=== PATIENT | male | born 1950 | race Caucasian/White ===

== ENCOUNTER → 2019-10-01 07:28 | Outpatient (CLI) | payer MEDICARE, OTHER, SELFPAY ==
--- NOTE | 2019-10-01 | DI.ECHO.S_ITS ---
[facility] +---------+ : : [address] : [place] : : : : [id number] : : : : Phone: [phone]+ Echocardiogram Report + + :Name: PADMINI WARD Study Date: 10/01/2019 Height: 73 in : :[facility] Weight: 209 lb : : Gender: Male BSA: 2.2 m2 : :: 1950 Age: 68 yrs BP: 130/72 mmHg: :Reason For Study: Cardiomyopathy : :Ordering Physician: Yordan : :Rajwinder Clemons Performed By: Devorah Gama : :Referring: Dr. Santosh Sweet : + + Interpretation Summary The ejection fraction is estimated to be 55-60%. There is questionable hypokinesis of the basal inferior/inferolateral wall. The evaluation is limited due to suboptimal visualization. There are no other obvious focal wall motion abnormalities. The right ventricle grossly appears normal in size with probable normal systolic function. Pulmonary artery pressures cannot be estimated because of the lack of a measurable TR jet velocity but the IVC suggests a CVP of around 3 mmHg. There is mild mitral regurgitation. Both atria are normal size. No prior echo in our system for comparison. Procedure: A two-dimensional transthoracic echocardiogram with color flow and Doppler was performed. The study quality was technically adequate. There is no prior echocardiogram noted for this patient. The patient was in normal sinus rhythm during the exam. The patient had frequent PACs during the exam. Left Ventricle: The left ventricle is normal in size. There is normal left ventricular wall thickness. The ejection fraction is estimated to be 55-60%. There is questionable hypokinesis of the basal inferior/inferolateral wall. The evaluation is limited due to suboptimal visualization. There are no other obvious focal wall motion abnormalities. Diastolic parameters suggest probable normal left ventricular diastolic function and normal filling pressures. Right Ventricle: The right ventricle grossly appears normal in size with probable normal systolic function. Atria: The left atrial size is normal. Right atrial size is normal. There is no Doppler evidence for an interatrial shunt. Mitral Valve: The mitral valve is grossly normal. There is mild mitral regurgitation. Aortic Valve: The aortic valve opens well. No aortic regurgitation is present. Tricuspid Valve: The tricuspid valve is normal in structure and function. No tricuspid regurgitation. Pulmonary artery pressures cannot be estimated because of the lack of a measurable TR jet velocity but the IVC suggests a CVP of around 3 mmHg. Pulmonic Valve: The pulmonic valve is not well seen, but is grossly normal. There is mild pulmonic regurgitation. Great Vessels: The aortic root is normal size. The dimensions of the ascending aorta are normal. The aortic arch is normal in size. The IVC is of normal diameter and collapses greater than 50% with a sniff. This suggests a low right atrial pressure of 3 mm Hg. Pericardium/ Pleura There is no pericardial effusion. There is no pleural effusion. MMode/2D Measurements & Calculations LVIDd: 5.9 cm Ao root diam: 3.6 cm LVIDs: 4.8 cm Aortic Jxn: 2.9 cm FS: 19.4 % asc Aorta Diam: 3.5 cm EPSS: 0.74 cm Ao Arch Diam (Prox Trans): 3.0 cm IVSd: 1.1 cm LVPWd: 0.79 cm LV goldsmith. diameter/BSA (cm/m^2): 2.7 LV sys. diameter/BSA (cm/m^2): 2.2 LA dimension: 4.3 cm RA long axis: 5.0 cm LA A2 area: 20.6 cm2 RA area: 16.6 cm2 LA A4 area: 21.9 cm2 RA vol: 46.7 ml LA length (vol): 6.0 cm RA : 21.3 ml/m2 LA vol: 63.3 ml IVC diam: 1.5 cm LA vol index: 28.9 ml/m2 RVDd major: 5.6 cm RVD1 (basal): 3.6 cm LVAd ap4: 34.0 cm2 RVD2 (mid): 3.2 cm LVAs ap4: 21.0 cm2 LVLs ap4: 7.1 cm Doppler Measurements & Calculations Ao V2 max: 192.2 cm/sec MV E max will: 96.2 cm/sec Ao V2 mean: 125.2 cm/sec MV A max will: 92.6 cm/sec Ao max P.8 mmHg MV E/A: 1.0 Ao mean P.2 mmHg Med Peak E' Will: 6.8 cm/sec Ao V2 VTI: 43.0 cm E/E' med: 14.1 Lat Peak E' Will: 10.1 cm/sec E/E' lat: 9.5 E/e' average: 11.8 MV dec time: 0.23 sec MV P1/2t: 70.1 msec MR ERO: 0.09 cm2 TR max will: 186.9 cm/sec MV P1/2t max will: 95.5 cm/sec TR max P.0 mmHg MVA(P1/2t): 3.1 cm2 PA V2 max: 105.9 cm/sec PA V2 mean: 70.8 cm/sec PA mean P.3 mmHg PA Accel Time: 0.09 sec MR flow rate: 43.2 cm3/sec MR PISA radius: 0.42 cm Electronically signed by: Yordan Purdy M.D. on Reading Physician:10/03/2019 04:18 PM
== END ==
PROVIDERS: PCP Family Medicine; Visit Provider Hospitalist
DX: I34.0 Nonrheumatic mitral (valve) insufficiency (principal); I37.1 Nonrheumatic pulmonary valve insufficiency; I42.9 Cardiomyopathy, unspecified
CPT/HCPCS: 93306

== ENCOUNTER 2020-05-30 12:29 | Emergency (ER) | payer MEDICARE, OTHER, SELFPAY ==
[2020-05-30 12:41] VITALS: BP 157/77; PULSE 75; RESP 15; TEMP 36.3; O2SAT 100; BMI 26.6
[2020-05-30 13:53] LABS: Add Manual Diff / Slide Review NO; Basophils Absolute Auto 0 /uL (0-100); Basophils Percent Auto 0.5 % (0-2); Eosinophils Absolute Auto 100 /uL (0-450); Eosinophils Percent Auto 1.1 % (2-4); Hematocrit 38.2 % (41-53); Hemoglobin 13.2 g/dL (13.5-17.5); Lymphocytes Absolute Auto 800 /uL (1100-4500); Lymphocytes Percent Auto 14.8 % (25-40); Mean Corpuscular HGB Conc 34.7 % (30-36); Mean Corpuscular Volume 97.9 fL (80-100); Monocytes Absolute Auto 500 /uL (0-900); Neutrophils Absolute Auto 3900 /uL (1500-7000); Neutrophils Percent Auto 74.6 % (50-75); Platelet Count 199 X10^3/uL (150-400); Red Cell Distribution Width 12.7 % (11.6-14.8); White Blood Cell Count 5.2 X10^3/uL (4.5-11.0)
[2020-05-30 13:59] LABS: Prothrombin Time 11.4 SECONDS (10.1-12.7)
[2020-05-30 14:01] LABS: PTT Partial Thromboplastin Tim 31 SECONDS (26.4-36.2)
[2020-05-30 14:13] LABS: Alanine Aminotransferase 45 IU/L (<50); Albumin 4.7 g/dL (3.5-5.0); Albumin Globulin Ratio 1.6 (1.0-2.8); Alkaline Phosphatase 67 U/L (38-126); Aspartate Aminotransferase 48 IU/L (17-59); BUN Creatinine Ratio 20.7 (6-22); Bilirubin Total 0.7 mg/dL (0.2-1.3); Blood Urea Nitrogen 17 mg/dL (9-20); Calcium 9.9 mg/dL (8.4-10.2); Carbon Dioxide 26 mmol/L (22-32); Chloride 97 mmol/L (98-107); Estimated Glomerular Filt Rate > 60.0 mL/min (>60); Glucose 111 mg/dL (80-110); HEMOLYSIS < 15 (0-50); Potassium 5.1 mmol/L (3.4-5.1); Sodium 135 mmol/L (137-145); Total Protein 7.7 g/dL (6.3-8.2)
[2020-05-30 16:34] VITALS: BP 159/77; TEMP 36.4
--- NOTE | 2020-05-30 16:47 | ED_ITS ---
HPI - GI Bleed General Chief complaint: GI Bleed Stated complaint: BLOOD IN THE STOOL Time Seen by Provider: 05/30/20 16:43 Source: patient Mode of arrival: Ambulatory Limitations: no limitations History of Present Illness HPI Narrative: 69-year-old gentleman with a history of rheumatoid arthritis, chronic diarrhea after having his gallbladder removed and a history of both internal and external hemorrhoids who presents with bright red rectal bleeding starting 4 days ago. He notes that he had an episode Friday associated with a loose stool and similar episodes Friday with slight increased volume of stool and increased volume of bright red blood. He is having absolutely no pain, no fevers and otherwise feels well Related Data Previous Rx's Medication Instructions Recorded gemfibrozil 600 mg PO DAILY #30 tab 05/30/20 hydrocortisone [Proctosol HC] 1 applictn IN BID-QID PRN #30 gram 05/30/20 Allergies Allergy/AdvReac Type Severity Reaction Status Date / Time codeine Allergy Verified 05/30/20 12:41 Review of Systems Review of Systems Narrative: Pertinent positive and negative findings as per HPI Remainder of review of systems is otherwise unremarkable for Constitutional: Fevers, chills, weakness ENT: No sore throat, neck pain, ear pain CV: Chest pain, palpitations, dyspnea on exertion Respiratory: Cough, wheeze, dyspnea GI: Nausea, vomiting, : Dysuria, hematuria, flank pain MS: Muscle weakness, numbness, joint swelling or warmth Patient History Medical History Bleeding internal hemorrhoids (Inactive) Chronic diarrhea (Acute) Social History Smoking Status: Unknown if ever smoked Smoking Status: Unknown if ever smoked alcohol intake frequency: 3 or more drinks per day Alcohol type: beer Substance Use Type: does not use Exam Narrative Exam Narrative: General: Alert appropriate in no acute distress Respiratory: Able to speak in full sentences, no obvious respiratory distress Cardiac: Regular rate and rhythm no murmurs Abdomen: Soft nontender nondistended Rectal: Multiple small external hemorrhoidal tags without bleeding. Moderate sized internal hemorrhoid at approximately 5:00. position with blood associated. Non thrombosed nontender Skin: No obvious rashes, warm and dry Neurologic: Grossly intact no obvious asymmetries or abnormalities Psych, appropriate insight and affect, cooperative Initial Vital Signs Initial Vital Signs: Vital Signs Temperature 97.3 F L 05/30/20 12:41 Pulse Rate 75 05/30/20 12:41 Respiratory Rate 15 05/30/20 12:41 Blood Pressure 157/77 H 05/30/20 12:41 Pulse Oximetry 100 05/30/20 12:41 Course Orders Ordered: ED Orders 05/30/20 12:45 EKG-12 Lead Stat 05/30/20 13:45 Complete Blood Count AUTO DIFF Stat Comprehensive Metabolic Panel Stat Partial Thromboplastin Time Stat Prothrombin Time INR Stat Vital Signs Vital signs: Vital Signs - 8 hr 05/30/20 12:41 05/30/20 16:34 Temperature 97.3 F L 97.6 F Pulse Rate 75 Respiratory Rate 15 Blood Pressure 157/77 H 159/77 H Pulse Oximetry 100 MDM - GI Bleed Medical Records Attestation: I reviewed the patient's medical records. Lab Data Attestation: I reviewed the patient's lab results. Result diagrams: 05/30/20 13:45 05/30/20 13:45 Labs: Lab Results 05/30/20 05/30/20 05/30/20 Range/Units 13:45 13:45 13:45 WBC 5.2 (4.5-11.0) X10^3/uL RBC 3.90 L (4.5-5.9) X10^6/uL Hgb 13.2 L (13.5-17.5) g/dL Hct 38.2 L (41-53) % MCV 97.9 (80-100) fL MCH 34.0 (26-34) PG MCHC 34.7 (30-36) % RDW 12.7 (11.6-14.8) % Plt Count 199 (150-400) X10^3/uL Neut % (Auto) 74.6 (50-75) % Lymph % (Auto) 14.8 L (25-40) % [place] % (Auto) 9.0 (3-14) % Eos % (Auto) 1.1 L (2-4) % Baso % (Auto) 0.5 (0-2) % Neut # (Auto) 3900 (3414-2322) /uL Lymph # (Auto) 800 L (5529-9010) /uL [place] # (Auto) 500 (0-900) /uL Eos # (Auto) 100 (0-450) /uL Baso # (Auto) 0 (0-100) /uL PT 11.4 (10.1-12.7) SECONDS INR 1.0 (0.9-1.3) APTT 31 (26.4-36.2) SECONDS Sodium 135 L (137-145) mmol/L Potassium 5.1 (3.4-5.1) mmol/L Chloride 97 L (98-107) mmol/L Carbon Dioxide 26 (22-32) mmol/L BUN 17 (9-20) mg/dL Creatinine 0.82 (0.66-1.25) mg/dL Estimated GFR > 60.0 (>60) mL/min BUN/Creatinine Ratio 20.7 (6-22) Glucose 111 H (80-110) mg/dL Calcium 9.9 (8.4-10.2) mg/dL Total Bilirubin 0.7 (0.2-1.3) mg/dL AST 48 (17-59) IU/L ALT 45 (<50) IU/L Alkaline Phosphatase 67 (38-126) U/L Total Protein 7.7 (6.3-8.2) g/dL Albumin 4.7 (3.5-5.0) g/dL Globulin 3.0 (1.7-4.1) g/dL Albumin/Globulin Ratio 1.6 (1.0-2.8) Discharge Plan Departure Patient Disposition: Home Clinical Impression: Bleeding internal hemorrhoids, Chronic diarrhea Instructions: DI for Hemorrhoids Activity Restrictions/Additional Instructions: Thank you for coming in today On your exam, it does look like you have an internal hemorrhoid that is causing her bleeding. I suspect that your chronic diarrhea is irritating the internal h emorrhoids. Your lab work is very reassuring, there are no signs of anemia. White blood cell count is 5.2 and there are no signs of infection I am going to suggest that you use gemfibrozil, a cholesterol-lowering medications that binds to bile. It can be helpful in reducing diarrhea secondary to chronic bile production after you have had your gallbladder removed. For the hemorrhoid I have given you a prescription for Proctosol HC. Use the applicator to apply the cream into your rectum at least 2 times a day until the bleeding has slowed and stopped for a number of days. Please do keep your appointment with your primary care provider next week. If you are still having significant rectal bleeding at that point you likely will need to have some type of endoscopy to further evaluate. I hope you feel better. Thank you so much for waiting today Prescriptions: New hydrocortisone [Proctosol HC] 2.5 % cream with perineal applicator 1 applictn IN BID-QID PRN (Reason: hemorrhoids) Qty: 30 RF: 1 gemfibrozil 600 mg tablet 600 mg PO DAILY Qty: 30 RF: 0 Referrals: Santosh Sweet MD [Primary Care Provider] -
== END 2020-05-30 17:26 | disposition home or self-care (01) ==
PROVIDERS: Emergency Provider Emergency Medicine; PCP Family Medicine
DX: K64.8 Other hemorrhoids (principal); K52.9 Noninfective gastroenteritis and colitis, unspecified
CPT/HCPCS: 36415; 80053; 85025; 85610; 85730; 99283

== ENCOUNTER 2022-09-05 11:29 | Emergency (ER) | payer MEDICARE, OTHER, SELFPAY ==
[2022-09-05 11:40] VITALS: BP 147/70; PULSE 78; RESP 15; TEMP 36.5; O2SAT 99; BMI 27.7
--- NOTE | 2022-09-05 11:47 | DI.RAD.S_ITS ---
PROCEDURE: XR CHEST 1V INDICATIONS: Shortness of breath TECHNIQUE: One view of the chest was acquired. COMPARISON: None. FINDINGS: Surgical changes and devices: None. Lungs and pleura: Lungs are clear. No pleural effusions or pneumothorax. Mediastinum: Mediastinal contours appear normal. Heart size is normal. Bones and chest wall: No suspicious bony lesions. Overlying soft tissues appear unremarkable. IMPRESSION: No acute finding. Dictated by: Vincent Garcia M.D. on 09/05/2022 at 12:33 Approved by: Vincent Garcia M.D. on 09/05/2022 at 12:34
[2022-09-05 12:10] LABS: Add Manual Diff / Slide Review NO; Basophils Absolute Auto 0 /uL (0-100); Basophils Percent Auto 0.4 % (0-2); Eosinophils Absolute Auto 0 /uL (0-450); Hematocrit 38.4 % (41-53); Hemoglobin 13.2 g/dL (13.5-17.5); Lymphocytes Absolute Auto 500 /uL (1100-4500); Lymphocytes Percent Auto 13.6 % (25-40); Mean Corpuscular HGB Conc 34.3 % (30-36); Mean Corpuscular Volume 96.1 fL (80-100); Monocytes Absolute Auto 600 /uL (0-900); Monocytes Percent Auto 15.9 % (3-14); Neutrophils Absolute Auto 2600 /uL (1500-7000); Neutrophils Percent Auto 69.1 % (50-75); Platelet Count 168 X10^3/uL (150-400); Red Blood Cell Count 3.99 X10^6/uL (4.5-5.9); Red Cell Distribution Width 13.7 % (11.6-14.8); White Blood Cell Count 3.7 X10^3/uL (4.5-11.0)
[2022-09-05 12:14] LABS: INR 1.1 (0.9-1.3); Prothrombin Time 12.1 SECONDS (10.1-12.7)
[2022-09-05 12:19] LABS: Alanine Aminotransferase 31 IU/L (<50); Albumin Globulin Ratio 1.4 (1.0-2.8); Alkaline Phosphatase 65 U/L (38-126); Aspartate Aminotransferase 45 IU/L (17-59); BUN Creatinine Ratio 9.2 (6-22); Bilirubin Total 0.6 mg/dL (0.2-1.3); Blood Urea Nitrogen 7 mg/dL (9-20); Calcium 8.7 mg/dL (8.4-10.2); Carbon Dioxide 28 mmol/L (22-32); Chloride 95 mmol/L (98-107); Estimated Glomerular Filt Rate > 60 mL/min (>60); Globulin 2.9 g/dL (1.7-4.1); Glucose 131 mg/dL (80-110); HEMOLYSIS < 15 (0-50); Potassium 4.3 mmol/L (3.4-5.1); Sodium 132 mmol/L (137-145); Total Protein 6.9 g/dL (6.3-8.2)
[2022-09-05 12:20] LABS: Lactate (Lactic Acid) 0.9 mmol/L (0.7-2.1)
[2022-09-05 12:31] LABS: NT-proBNP (BNP-Adult 18+) 119 pg/mL (<125); Troponin I < 0.012 ng/mL (0.01-0.034)
[2022-09-05 12:42] LABS: Influenza A - CEPHEID Flu A POSITIVE (NEGATIVE); Influenza B - CEPHEID Flu B NEGATIVE (NEGATIVE); Respiratory Syncytial Virus Negative (Negative)
[2022-09-05 13:01] LABS: COVID-19 CEPHEID 4-PLEX PCR Negative (Negative)
--- NOTE | 2022-09-05 14:17 | ED_ITS ---
HPI - SOB/Dyspnea <JOSSIE Thorpe - Last Filed: 09/05/22 14:23> General Chief Complaint: Shortness of Breath/Dyspnea Stated Complaint: difficulty breathing,stabbing back & stomach pain Time Seen by Provider: 09/05/22 12:49 Source: patient Mode of arrival: Ambulatory Limitations: no limitations History of Present Illness HPI Narrative: This is a 71-year-old gentleman presents to the emergency department with 67 days of intermittent shortness of breath or shortness of breath with exertion, stomach pain and worsening low back pain. He has a history of rheumatoid arthritis and received his infusion yesterday, states that he also has a history of type 2 diabetes and has had all of his COVID vaccinations. He states that 2 nights ago he had more than a normal amount of phlegm and was coughing up phlegm most of the night, he denies recent fever or chills, denies any significant shortness of breath. Denies any wheezing or history of smoking. Denies history of pneumonia, states that his congestion and pleurisy started on the right and has progressed and started to improve. He states that he had mild swelling to his bilateral lower extremities this morning as the 1st day of this and it improved by the time he arrived here. He denies history of heart failure, is not anticoagulated, he has seen Dr. Espinoza while for Cardiology and takes antihypertensives. Denies any history of blood clots or CVA, endorses using chewing tobacco. Four days ago he had a right toenail procedure by Dr. Lang and has had improvement of this over the last 4 days without worsening swelling, discharge, tenderness or concern for infection. He states that it has improved every single day and is healing as he would expect. Related Data Previous Rx's Medication Instructions Recorded gemfibrozil 600 mg tablet 600 mg PO DAILY #30 tabs 05/30/20 hydrocortisone 2.5 % topical cream 1 applictn MN BID-QID PRN 05/30/20 with perineal applicator hemorrhoids #30 grams (Proctosol HC) Allergies Allergy/AdvReac Type Severity Reaction Status Date / Time codeine Allergy Verified 09/05/22 11:43 Review of Systems <JOSSIE Thorpe - Last Filed: 09/05/22 14:23> Review of Systems Narrative: Review of systems is negative for acute abnormalities unless otherwise noted in HPI Patient History <JOSSIE Thorpe - Last Filed: 09/05/22 14:23> Medical History Bleeding internal hemorrhoids Chronic diarrhea Social History Smoking Status: Unknown if ever smoked Smoking Status: Unknown if ever smoked alcohol intake frequency: 3 or more drinks per day Alcohol type: beer Substance Use Type: does not use Exam <JOSSIE Thorpe - Last Filed: 09/05/22 14:23> Narrative Exam Narrative: Reviewed vitals signs and nursing notes. General: cooperative, comfortable, in no acute distress, well groomed HEENT: symmetrical facial expressions, moist mucous membranes Cardiovascular: regular rate and rhythm, no peripheral edema, warm extremities Respiratory: Mildly tachypneic with shallow respirations, clear breath sounds throughout without rhonchi, wheezing, able to speak in complete sentences, without stridor or increased work of breathing. RT eval without abnormal breath sounds, wheezing, and does not recommend nebulizer. GI: abdomen soft, nontender to palpation, nondistended, without masses, rebound tenderness or exquisite tenderness with exam. No CVA tenderness bilaterally MSK: moves all extremities, neurovascularly intact, no weakness, normal tone complains of Skin: brisk capillary refill, without pallor or erythema Neuro: normal speech and cognition, A&O x3, ambulatory, clear speech Psych: mental status is grossly normal, congruent mood, normal affect, pleasant and cooperative Initial Vital Signs Initial Vital Signs: Vital Signs Temperature 97.7 F 09/05/22 11:40 Pulse Rate 78 09/05/22 11:40 Respiratory Rate 15 09/05/22 11:40 Blood Pressure 147/70 H 09/05/22 11:40 Pulse Oximetry 99 09/05/22 11:40 Oxygen Delivery Method 09/05/22 11:40 <Jing Carrion DO - Last Filed: 09/06/22 11:55> Initial Vital Signs Initial Vital Signs: Vital Signs Temperature 97.7 F 09/05/22 11:40 Pulse Rate 78 09/05/22 11:40 Respiratory Rate 15 09/05/22 11:40 Blood Pressure 147/70 H 09/05/22 11:40 Pulse Oximetry 99 09/05/22 11:40 Oxygen Delivery Method 09/05/22 11:40 Course <JOSSIE Thorpe - Last Filed: 09/05/22 14:23> Orders Ordered: Discontinued Medications Guaifenesin (Guaifenesin Er 600 Mg Tab) 600 mg PO NOW ONE Stop: 09/05/22 14:05 Last Admin: 09/05/22 14:29 Dose: 600 mg Documented By: ROSALEE Ibuprofen (Ibuprofen 400 Mg Tablet) 600 mg PO NOW ONE Stop: 09/05/22 14:13 Last Admin: 09/05/22 14:29 Dose: 600 mg Documented By: ROSALEE Prednisone (Prednisone 20 Mg Tablet) 40 mg PO NOW ONE Stop: 09/05/22 14:05 Last Admin: 09/05/22 14:23 Dose: Not Given Documented By: ROSALEE Vital Signs Vital signs: Vital Signs - 8 hr 09/05/22 11:40 Temperature 97.7 F Pulse Rate 78 Respiratory Rate 15 Blood Pressure 147/70 H Pulse Oximetry 99 Oxygen Delivery Method Room Air <Jing Carrion DO - Last Filed: 09/06/22 11:55> Orders Ordered: Discontinued Medications Guaifenesin (Guaifenesin Er 600 Mg Tab) 600 mg PO NOW ONE Stop: 09/05/22 14:05 Last Admin: 09/05/22 14:29 Dose: 600 mg Documented By: ROSALEE Ibuprofen (Ibuprofen 400 Mg Tablet) 600 mg PO NOW ONE Stop: 09/05/22 14:13 Last Admin: 09/05/22 14:29 Dose: 600 mg Documented By: ROSALEE Prednisone (Prednisone 20 Mg Tablet) 40 mg PO NOW ONE Stop: 09/05/22 14:05 Last Admin: 09/05/22 14:23 Dose: Not Given Documented By: ROSALEE Vital Signs Vital signs: Vital Signs - 8 hr 09/05/22 11:40 Temperature 97.7 F Pulse Rate 78 Respiratory Rate 15 Blood Pressure 147/70 H Pulse Oximetry 99 Oxygen Delivery Method Room Air MDM - SOB/Dyspnea <JOSSIE Thorpe - Last Filed: 09/05/22 14:23> Lab Data Result diagrams: 09/05/22 11:55 09/05/22 11:55 Labs: Lab Results 09/05/22 09/05/22 09/05/22 Range/Units 11:48 11:55 11:55 WBC 3.7 L (4.5-11.0) X10^3/uL RBC 3.99 L (4.5-5.9) X10^6/uL Hgb 13.2 L (13.5-17.5) g/dL Hct 38.4 L (41-53) % MCV 96.1 (80-100) fL MCH 33.0 (26-34) PG MCHC 34.3 (30-36) % RDW 13.7 (11.6-14.8) % Plt Count 168 (150-400) X10^3/uL Neut % (Auto) 69.1 (50-75) % Lymph % (Auto) 13.6 L (25-40) % [place] % (Auto) 15.9 H (3-14) % Eos % (Auto) 1.0 L (2-4) % Baso % (Auto) 0.4 (0-2) % Neut # (Auto) 2600 (7993-7562) /uL Lymph # (Auto) 500 L (0145-2617) /uL [place] # (Auto) 600 (0-900) /uL Eos # (Auto) 0 (0-450) /uL Baso # (Auto) 0 (0-100) /uL PT 12.1 (10.1-12.7) SECONDS INR 1.1 (0.9-1.3) Sodium (137-145) mmol/L Potassium (3.4-5.1) mmol/L Chloride (98-107) mmol/L Carbon Dioxide (22-32) mmol/L BUN (9-20) mg/dL Creatinine (0.66-1.25) mg/dL Estimated GFR (>60) mL/min BUN/Creatinine Ratio (6-22) Glucose (80-110) mg/dL Lactate (0.7-2.1) mmol/L Calcium (8.4-10.2) mg/dL Total Bilirubin (0.2-1.3) mg/dL AST (17-59) IU/L ALT (<50) IU/L Alkaline Phosphatase (38-126) U/L Troponin I (0.01-0.034) ng/mL NT-Pro-B Natriuret Pep (<125) pg/mL Total Protein (6.3-8.2) g/dL Albumin (3.5-5.0) g/dL Globulin (1.7-4.1) g/dL Albumin/Globulin Ratio (1.0-2.8) SARS-CoV-2 (PCR) Negative (Negative) Influenza A (RT-PCR) Flu a positive H (NEGATIVE) Influenza B (RT-PCR) Flu b negative (NEGATIVE) RSV (PCR) Negative (Negative) 09/05/22 09/05/22 Range/Units 11:55 11:55 WBC (4.5-11.0) X10^3/uL RBC (4.5-5.9) X10^6/uL Hgb (13.5-17.5) g/dL Hct (41-53) % MCV (80-100) fL MCH (26-34) PG MCHC (30-36) % RDW (11.6-14.8) % Plt Count (150-400) X10^3/uL Neut % (Auto) (50-75) % Lymph % (Auto) (25-40) % [place] % (Auto) (3-14) % Eos % (Auto) (2-4) % Baso % (Auto) (0-2) % Neut # (Auto) (8530-9057) /uL Lymph # (Auto) (7848-8691) /uL [place] # (Auto) (0-900) /uL Eos # (Auto) (0-450) /uL Baso # (Auto) (0-100) /uL PT (10.1-12.7) SECONDS INR (0.9-1.3) Sodium 132 L (137-145) mmol/L Potassium 4.3 (3.4-5.1) mmol/L Chloride 95 L (98-107) mmol/L Carbon Dioxide 28 (22-32) mmol/L BUN 7 L (9-20) mg/dL Creatinine 0.76 (0.66-1.25) mg/dL Estimated GFR > 60 (>60) mL/min BUN/Creatinine Ratio 9.2 (6-22) Glucose 131 H (80-110) mg/dL Lactate 0.9 (0.7-2.1) mmol/L Calcium 8.7 (8.4-10.2) mg/dL Total Bilirubin 0.6 (0.2-1.3) mg/dL AST 45 (17-59) IU/L ALT 31 (<50) IU/L Alkaline Phosphatase 65 (38-126) U/L Troponin I < 0.012 (0.01-0.034) ng/mL NT-Pro-B Natriuret Pep 119 (<125) pg/mL Total Protein 6.9 (6.3-8.2) g/dL Albumin 4.0 (3.5-5.0) g/dL Globulin 2.9 (1.7-4.1) g/dL Albumin/Globulin Ratio 1.4 (1.0-2.8) SARS-CoV-2 (PCR) (Negative) Influenza A (RT-PCR) (NEGATIVE) Influenza B (RT-PCR) (NEGATIVE) RSV (PCR) (Negative) Imaging Data Chest x-ray: Radiologist's Impression: PROCEDURE:? XR CHEST 1V ? INDICATIONS:? Shortness of breath ? TECHNIQUE:? One view of the chest was acquired.? ? COMPARISON:? None. ? FINDINGS:? ? Surgical changes and devices:? None.? ? Lungs and pleura:? Lungs are clear.? No pleural effusions or pneumothorax.? ? Mediastinum:? Mediastinal contours appear normal.? Heart size is normal.? ? Bones and chest wall:? No suspicious bony lesions.? Overlying soft tissues appear unremarkable.? ? IMPRESSION:? No acute finding. ? ? Dictated by: Vincent Garcia M.D. on 09/05/2022 at 12:33 ? ? Approved by: Vincent Garcia M.D. on 09/05/2022 at 12:34 ? [facility] Narrative Medical decision making narrative: This is a 71-year-old gentleman who presents the emergency department with upper respiratory congestion, nausea and vomiting a few days ago, 6 days of muscle aches, shortness of breath with exertion and he tested positive for influenza a today. He is nontoxic appearing, without increased work of breathing, hypoxia, tachypnea, or abnormal breath sounds. Chest x-ray does not show any acute cardiopulmonary abnormality. He has a history of rheumatoid arthritis, diabetes, recent toenail procedure with Dr. Lang without any signs of bacterial infection. Other possible diagnosis' considered include; viral URI, influenza, pneumonia, pharyngitis, acute bronchitis, allergic rhinitis, pertussis, sinusitis, appendicitis, dehydration. Rest, drink plenty of fluids, NSAIDS for muscle aches and pains. Return to ED for worsening symptoms such as SOB, chest pain, inability to take adequate oral fluids, fever, or productive cough. Recommend follow-up with PCP and other providers as needed. <Jing Carrion, DO - Last Filed: 09/06/22 11:55> Lab Data Labs: Lab Results 09/05/22 09/05/22 09/05/22 Range/Units 11:48 11:55 11:55 WBC 3.7 L (4.5-11.0) X10^3/uL RBC 3.99 L (4.5-5.9) X10^6/uL Hgb 13.2 L (13.5-17.5) g/dL Hct 38.4 L (41-53) % MCV 96.1 (80-100) fL MCH 33.0 (26-34) PG MCHC 34.3 (30-36) % RDW 13.7 (11.6-14.8) % Plt Count 168 (150-400) X10^3/uL Neut % (Auto) 69.1 (50-75) % Lymph % (Auto) 13.6 L (25-40) % [place] % (Auto) 15.9 H (3-14) % Eos % (Auto) 1.0 L (2-4) % Baso % (Auto) 0.4 (0-2) % Neut # (Auto) 2600 (9211-2052) /uL Lymph # (Auto) 500 L (5760-8895) /uL [place] # (Auto) 600 (0-900) /uL Eos # (Auto) 0 (0-450) /uL Baso # (Auto) 0 (0-100) /uL PT 12.1 (10.1-12.7) SECONDS INR 1.1 (0.9-1.3) Sodium (137-145) mmol/L Potassium (3.4-5.1) mmol/L Chloride (98-107) mmol/L Carbon Dioxide (22-32) mmol/L BUN (9-20) mg/dL Creatinine (0.66-1.25) mg/dL Estimated GFR (>60) mL/min BUN/Creatinine Ratio (6-22) Glucose (80-110) mg/dL Lactate (0.7-2.1) mmol/L Calcium (8.4-10.2) mg/dL Total Bilirubin (0.2-1.3) mg/dL AST (17-59) IU/L ALT (<50) IU/L Alkaline Phosphatase (38-126) U/L Troponin I (0.01-0.034) ng/mL NT-Pro-B Natriuret Pep (<125) pg/mL Total Protein (6.3-8.2) g/dL Albumin (3.5-5.0) g/dL Globulin (1.7-4.1) g/dL Albumin/Globulin Ratio (1.0-2.8) SARS-CoV-2 (PCR) Negative (Negative) Influenza A (RT-PCR) Flu a positive H (NEGATIVE) Influenza B (RT-PCR) Flu b negative (NEGATIVE) RSV (PCR) Negative (Negative) 09/05/22 09/05/22 Range/Units 11:55 11:55 WBC (4.5-11.0) X10^3/uL RBC (4.5-5.9) X10^6/uL Hgb (13.5-17.5) g/dL Hct (41-53) % MCV (80-100) fL MCH (26-34) PG MCHC (30-36) % RDW (11.6-14.8) % Plt Count (150-400) X10^3/uL Neut % (Auto) (50-75) % Lymph % (Auto) (25-40) % [place] % (Auto) (3-14) % Eos % (Auto) (2-4) % Baso % (Auto) (0-2) % Neut # (Auto) (7074-7619) /uL Lymph # (Auto) (0942-1999) /uL [place] # (Auto) (0-900) /uL Eos # (Auto) (0-450) /uL Baso # (Auto) (0-100) /uL PT (10.1-12.7) SECONDS INR (0.9-1.3) Sodium 132 L (137-145) mmol/L Potassium 4.3 (3.4-5.1) mmol/L Chloride 95 L (98-107) mmol/L Carbon Dioxide 28 (22-32) mmol/L BUN 7 L (9-20) mg/dL Creatinine 0.76 (0.66-1.25) mg/dL Estimated GFR > 60 (>60) mL/min BUN/Creatinine Ratio 9.2 (6-22) Glucose 131 H (80-110) mg/dL Lactate 0.9 (0.7-2.1) mmol/L Calcium 8.7 (8.4-10.2) mg/dL Total Bilirubin 0.6 (0.2-1.3) mg/dL AST 45 (17-59) IU/L ALT 31 (<50) IU/L Alkaline Phosphatase 65 (38-126) U/L Troponin I < 0.012 (0.01-0.034) ng/mL NT-Pro-B Natriuret Pep 119 (<125) pg/mL Total Protein 6.9 (6.3-8.2) g/dL Albumin 4.0 (3.5-5.0) g/dL Globulin 2.9 (1.7-4.1) g/dL Albumin/Globulin Ratio 1.4 (1.0-2.8) SARS-CoV-2 (PCR) (Negative) Influenza A (RT-PCR) (NEGATIVE) Influenza B (RT-PCR) (NEGATIVE) RSV (PCR) (Negative) ECG Data Attestation: I personally reviewed and interpreted this ECG as follows: Prior ECG tracings: not available for review Interpretation: Sinus rhythm rate of 78 MN 176 QRS 90 QTC of 440. No acute ST elevation or depression noted. No priors for comparison. Discharge Plan Departure Patient Disposition: Home Clinical Impression: Influenza A Instructions: Influenza Activity Restrictions/Additional Instructions: *You have been diagnosed with influenza A. Typically symptoms last 4-6 days, you may have ongoing cough and congestion. Please start taking Zyrtec 10-20 mg at night to help decrease the congestion, you can use Mucinex for productive cough if it is thick. Please use Tylenol and ibuprofen every 6-8 hours as needed for pain and fever. I hope you feel better soon, chest x-ray does not show pneumonia, pleural effusions, and your lab work does not show any sign of heart strain or fluid overload. You should start getting better soon and if not, please come back if you have worsening symptoms. Flonase nasal spray morning and night can help decrease some of the sinus congestion as well. *What to do: *Please continue to take your regular medications as directed. [ ] New medication prescriptions sent to your pharmacy: [ ] [ ] New medication written as a paper prescription [ x] No new medications given *Please follow up with your primary care provider in 2-3 days, call for an ap pointment. Let them know you were seen in the Emergency Department and that we asked that you be seen for follow-up. We will electronically transmit a record of today's note if your PCP is in our system *If you do not have a primary care provider please contact [phone] to establish care with one of the [facility] primary care providers. *Return to Emergency Department if you should have any new, worsening, or concerning symptoms, such as [fever greater than 101F, chills, worsening pain, persistent vomiting or other bothersome symptoms]. Prescriptions: No Action hydrocortisone [Proctosol HC] 2.5 % cream with perineal applicator 1 applictn MN BID-QID PRN (Reason: hemorrhoids) Qty: 30 1RF gemfibrozil 600 mg tablet 600 mg PO DAILY Qty: 30 0RF Referrals: Santosh Sweet MD [Primary Care Provider] - Visit Report Forms: Patient Portal/API <Jing Carrion DO - Last Filed: 09/06/22 11:55> Cosign ED Attending Arsenature Attestation: I was immediately available in the department for consultation. Documentation has been reviewed.
[2022-09-05] MEDS: guaiFENesin ER 600 MG TAB PO (14:29)
[2022-09-05] MEDS: IBUPROFEN 400 MG TABLET 600 MG PO (14:29)
== END 2022-09-05 14:34 | disposition home or self-care (01) ==
PROVIDERS: Emergency Medicine; Emergency Provider Nurse Practitioner Critical Care Medicine; PCP Family Medicine
DX: J10.1 Influenza due to other identified influenza virus with other respiratory manifestations (principal); Z20.822 Contact with and (suspected) exposure to COVID-19
CPT/HCPCS: 0241U; 36415; 71045; 80053; 83605; 83880; 84484; 85025; 85610; 93005; 99284

== ENCOUNTER → 2022-12-02 12:10 | Outpatient (CLI) | payer MEDICARE, OTHER, SELFPAY ==
--- NOTE | 2022-12-02 | DI.ECHO.S_ITS ---
[place]---------+ [facility] +---------+ : : [address] [place] : : : : [id number] : : : : Phone: [phone]+ Echocardiogram Report + + :Name: PADMINI WARD Study Date: 12/02/2022 Height: 73 in : :[facility] ReadingLocation: Weight: 208 lb : : Gender: Male BSA: 2.2 m2 : :: 1950 Age: 72 yrs BP: 133/68 mmHg: :Reason For Study: Cardiomyopathy : :Ordering Physician: FRANCES, : :LIZ Performed By: Treasure Levine : :Referring: LIZ DANIELS : + + Interpretation Summary The left ventricle is normal in size and wall thickness.Left ventricular systolic function is normal. The ejection fraction is estimated to be 65-70%. Previous LVEF 55 to 60%.Basal inferior and basal posterior lateral wall hypokinesis. Unchanged from the previous study. The right ventricle is normal in size and function. No significant valvular pathology seen. The IVC is of normal diameter and collapses greater than 50% with a sniff. This suggests a low right atrial pressure of 3 mm Hg. There is a trivial pericardial effusion noted. Appears to be new along with anterior fat pad. There are no echocardiographic indications of cardiac tamponade. Procedure: A two-dimensional transthoracic echocardiogram with color flow and Doppler was performed. The study quality was technically good. There has been no significant change since the previous study. The patient was in sinus rhythm with heart rates between 68-75 bpm during the exam. Left Ventricle: The left ventricle is normal in size and wall thickness. There is no thrombus. The ejection fraction is estimated to be 65-70%. Left ventricular systolic function is normal. Basal inferior and basal posterior lateral wall hypokinesis. Unchanged from the previous study. Diastolic parameters suggest a relaxation abnormality of the left ventricle, consistent with probable normal filling pressures. Right Ventricle: The right ventricle is normal in size and function. Atria: The left atrial size is normal. There has been no significant change since the previous study. Right atrial size is normal. There is no Doppler evidence for an interatrial shunt. Mitral Valve: The mitral valve is normal in structure and function. There is trace mitral regurgitation. Aortic Valve: The aortic valve is normal in structure and function. The aortic valve is trileaflet. There is no aortic valve stenosis. No aortic regurgitation is present. Tricuspid Valve: The tricuspid valve is normal in structure and function. Pulmonary artery pressures cannot be estimated because of the lack of a measurable TR jet velocity. There is trace tricuspid regurgitation. Pulmonic Valve: The pulmonic valve is not well seen, but is grossly normal. There is mild pulmonic regurgitation. Great Vessels: The aortic root is normal size. The ascending aorta is at the upper limits of normal in size. The IVC is of normal diameter and collapses greater than 50% with a sniff. This suggests a low right atrial pressure of 3 mm Hg. Pericardium/ Pleura There is a trivial pericardial effusion noted. There is an anterior echo-free space consistent with a fat pad. There are no echocardiographic indications of cardiac tamponade. There is no pleural effusion. MMode/2D Measurements & Calculations LVIDd: 5.1 cm LVOT diam: 2.0 cm LVIDs: 3.6 cm Ao root diam: 3.6 cm FS: 29.4 % asc Aorta Diam: 3.5 cm EPSS: 0.60 cm IVSd: 1.0 cm LVPWd: 1.1 cm LV goldsmith. diameter/BSA (cm/m^2): 2.3 LV sys. diameter/BSA (cm/m^2): 1.6 LA dimension: 3.4 cm RA long axis: 3.6 cm LA A2 area: 21.0 cm2 RA area: 10.2 cm2 LA A4 area: 15.3 cm2 RA vol: 24.7 ml LA length (vol): 5.7 cm RA : 11.3 ml/m2 LA vol: 48.1 ml IVC diam: 1.9 cm LA vol index: 22.0 ml/m2 RVD1 (basal): 3.4 cm LVLs ap4: 5.9 cm LVLd ap2: 8.0 cm TAPSE_phl: 2.8 cm LVLs ap2: 5.8 cm Doppler Measurements & Calculations Ao V2 max: 188.0 cm/sec LVOT Max Will: 113.0 cm/sec Ao V2 mean: 136.0 cm/sec LV V1 max P.1 mmHg Ao max P.0 mmHg LV V1 VTI: 24.1 cm Ao mean P.0 mmHg TITUS(I,D): 1.9 cm2 Ao V2 VTI: 40.6 cm TITUS(V,D): 1.9 cm2 sev ratio: 0.59 TITUS indexed to BSA (cm^2/m^2): 0.85 MV E max will: 79.5 cm/sec PA V2 max: 145.0 cm/sec MV A max will: 87.8 cm/sec PA V2 mean: 91.0 cm/sec MV E/A: 0.91 PA mean P.0 mmHg Med Peak E' Will: 7.6 cm/sec E/E' med: 10.4 Lat Peak E' Will: 8.5 cm/sec E/E' lat: 9.3 E/e' average: 9.9 MV dec time: 0.31 sec MVA(VTI): 2.3 cm2 MV V2 mean: 70.4 cm/sec SV(LVOT): 75.7 ml MV mean P.0 mmHg MV V2 VTI: 33.3 cm AV VR_phl: 0.60 MV P1/2t-pr_phl: 91.0 msec TITUS(VTI)/BSA_phl: 0.85 Reading Physician:05:10 PM
== END ==
PROVIDERS: PCP Family Medicine; Referring Provider Nurse Practitioner Acute Care; Visit Provider Nurse Practitioner Acute Care
DX: I37.1 Nonrheumatic pulmonary valve insufficiency (principal); I42.9 Cardiomyopathy, unspecified
CPT/HCPCS: 93306